=== PATIENT | female | born 1950 | race Caucasian/White ===

== ENCOUNTER 2016-09-23 13:03 | Inpatient (IN) | payer BC, OTHER ==
[~2016-09-23] VITALS: Ht 154.9 cm; Wt 97.2 kg
[~2016-09-23 13:03] MED LIST: ASPIRIN 32325 MG/TAB PO; CELEXA 20MG20 MG/TAB PO; CELEXA10 MG PO; COUMADIN 5MG5 MG/TAB PO; COZAAR100 MG PO; DITROPAN 5MG TAB5 MG PO; FIBER; HYTRIN 2MG CAPSU2 MG PO; LASIX 40MG TABL40 MG PO; LOPRESSOR 225 MG/TAB PO; PROAIR HFA0.09 MG/AC IH
[2016-09-23 14:40] VITALS: BP 132/77; PULSE 115; TEMP 97.5
[2016-09-23 17:57] VITALS: BP 120/56; PULSE 85; TEMP 98.7
[2016-09-24 05:23] VITALS: BP 131/75; PULSE 88; TEMP 98.5
[2016-09-24 16:06] VITALS: BP 118/66; PULSE 78; TEMP 97.5
[2016-09-25 06:03] VITALS: BP 123/83; PULSE 93; TEMP 98.2
[2016-09-25 06:40] LABS: HEMOGLOBIN 12.5 g/dl (12.5-16.0); MEAN CELL VOLUME 86 fl (80.0-100.0); MEAN CORPUSCULAR HEMOGLOBIN 27 pg (27.0-31.0); MEAN CORPUSCULAR HGB CONC 32 g/dl (33.0-37.0); MEAN PLATELET VOLUME 10.7 fl (7.4-10.4); PLATELET COUNT 314 K/mm3 (130-400); RED BLOOD COUNT 4.56 M/mm3 (4.10-5.30); REDCELL DISTRIBUTION WIDTH-CV 14.6 % (11.5-14.5); WHITE BLOOD COUNT 11.1 K/mm3 (4.8-10.8)
[2016-09-25 06:44] LABS: ADD PATHOLOGY DIFF REVIEW NO
[2016-09-25 06:55] LABS: CALCIUM 9.2 mg/dL (8.4-10.2); CREATININE, serum 0.91 mg/dL (0.52-1.25); POTASSIUM 4.8 mmol/L (3.4-5.0)
[2016-09-25 07:19] LABS: BAND 3 % (0-10); EOSINOPHIL 4 % (0-4); NEUTROPHILS 63 % (42.0-75.2); TOTAL CELLS COUNTED 100
[2016-09-25 07:20] LABS: PLATELET ESTIMATE NORMAL (NORMAL)
[2016-09-25 09:15] VITALS: BP 117/74; PULSE 102; TEMP 97.4
[2016-09-25 16:16] VITALS: BP 102/58; PULSE 71; TEMP 98.2
[2016-09-26 03:58] VITALS: BP 102/78; PULSE 95; TEMP 97.5
[2016-09-26 17:30] VITALS: BP 107/52; PULSE 89; TEMP 97.4
[2016-09-27 04:18] VITALS: BP 108/69; PULSE 99; TEMP 97.8
[2016-09-28 04:24] VITALS: BP 98/62; PULSE 100; TEMP 97.9
[2016-09-28 13:10] VITALS: BP 95/50; PULSE 63; TEMP 97.5
[2016-09-28 16:49] VITALS: BP 107/75; PULSE 100; TEMP 97.1
[2016-09-29] VITALS (349 sets, daily range): BP systolic 109; BP diastolic 59; PULSE 99; TEMP 97.6; O2SAT 95–100
[2016-09-29 06:41] LABS: HEMATOCRIT 41.5 % (37.0-47.0); HEMOGLOBIN 13.8 g/dl (12.5-16.0); MEAN CELL VOLUME 84 fl (80.0-100.0); MEAN CORPUSCULAR HEMOGLOBIN 28 pg (27.0-31.0); MEAN CORPUSCULAR HGB CONC 33 g/dl (33.0-37.0); MEAN PLATELET VOLUME 10.6 fl (7.4-10.4); PLATELET COUNT 418 K/mm3 (130-400); RED BLOOD COUNT 4.97 M/mm3 (4.10-5.30); REDCELL DISTRIBUTION WIDTH-CV 14.6 % (11.5-14.5); WHITE BLOOD COUNT 13.8 K/mm3 (4.8-10.8)
[2016-09-29 06:57] LABS: CREATININE, serum 3.61 mg/dL (0.52-1.25)
[2016-09-29 07:03] LABS: ADD PATHOLOGY DIFF REVIEW NO
[2016-09-29 07:34] LABS: BAND 3 % (0-10); BASOPHIL 2 % (0-2); EOSINOPHIL 7 % (0-4); METAMYELOCYTE 1 % (0-0); NEUTROPHILS 71 % (42.0-75.2); PLATELET ESTIMATE NORMAL (NORMAL); TOTAL CELLS COUNTED 100
[2016-09-29 07:48] LABS: POTASSIUM 6.8 mmol/L (3.4-5.0)
== END 2016-09-29 09:15 | DRG 948 ==
LOC: ICU 09-29 09:06
PROVIDERS: Internal Medicine
DX: R53.81 Other malaise (principal); E46 Unspecified protein-calorie malnutrition; K91.3 Postprocedural intestinal obstruction; Z68.41 Body mass index [BMI] 40.0-44.9, adult; I31.3 Pericardial effusion (noninflammatory); N17.9 Acute kidney failure, unspecified; Z93.2 Ileostomy status; I48.2 Chronic atrial fibrillation; J44.9 Chronic obstructive pulmonary disease, unspecified; I10 Essential (primary) hypertension; E66.01 Morbid (severe) obesity due to excess calories; Z87.891 Personal history of nicotine dependence; E87.6 Hypokalemia
CPT/HCPCS: 99223-AI; 99232-AI; J1644; J2405; J7040

== ENCOUNTER 2016-09-29 09:06 | Inpatient (IN) | payer OTHER ==
[~2016-09-29] VITALS: Ht 170.2 cm; Wt 97.1 kg
[2016-09-29] VITALS (398 sets, daily range): BP systolic 102–118; BP diastolic 57–71; PULSE 75–104; TEMP 97.8–98.4; O2SAT 93–100
[2016-09-29 09:55] LABS: HEMATOCRIT 39.2 % (37.0-47.0); HEMOGLOBIN 12.9 g/dl (12.5-16.0); MEAN CELL VOLUME 84 fl (80.0-100.0); MEAN CORPUSCULAR HEMOGLOBIN 28 pg (27.0-31.0); MEAN CORPUSCULAR HGB CONC 33 g/dl (33.0-37.0); MEAN PLATELET VOLUME 10.5 fl (7.4-10.4); PLATELET COUNT 361 K/mm3 (130-400); RED BLOOD COUNT 4.66 M/mm3 (4.10-5.30); REDCELL DISTRIBUTION WIDTH-CV 14.6 % (11.5-14.5); WHITE BLOOD COUNT 9.8 K/mm3 (4.8-10.8)
[2016-09-29 09:57] LABS: ADD PATHOLOGY DIFF REVIEW NO
[2016-09-29 09:59] LABS: CALCIUM 9.2 mg/dL (8.4-10.2); CREATININE, serum 3.39 mg/dL (0.52-1.25)
[2016-09-29 10:11] LABS: POTASSIUM 6.3 mmol/L (3.4-5.0)
[2016-09-29 10:15] LABS: BAND 5 % (0-10); EOSINOPHIL 4 % (0-4); METAMYELOCYTE 1 % (0-0); NEUTROPHILS 78 % (42.0-75.2); PLATELET ESTIMATE NORMAL (NORMAL); TOTAL CELLS COUNTED 100
[2016-09-29 11:23] LABS: HYALINE CAST >12 /lpf; PH 5 (5-8); SQUAMOUS EPITHELIAL 0-2 /hpf; URINE APPEARANCE Hazy; URINE BACTERIA None Seen /hpf; URINE BILIRUBIN Negative (NEGATIVE); URINE BLOOD Negative (NEGATIVE); URINE COLOR Yellow; URINE GLUCOSE 1+ (NEGATIVE); URINE KETONE Negative (NEGATIVE); URINE RBC 0-2 /hpf; URINE UROBILINOGEN Negative (NEGATIVE)
[2016-09-29 13:17] LABS: ADJUSTED CALCIUM 9.4 mg/dL (8.4-10.2); ALBUMIN 3.7 gm/dL (3.5-5.0); BILIRUBIN,TOTAL 0.8 mg/dL (0.0-1.0); CALCIUM 9.2 mg/dL (8.4-10.2); CREATININE, serum 2.67 mg/dL (0.52-1.25); TOTAL PROTEIN 7.4 gm/dL (6.4-8.2)
[2016-09-29 13:22] LABS: POTASSIUM 5.9 mmol/L (3.4-5.0)
[2016-09-30] VITALS (693 sets, daily range): BP systolic 110–132; BP diastolic 60–85; PULSE 76–102; TEMP 96.7–98.4; O2SAT 93–100
[2016-09-30 05:40] LABS: BASO # 0.1 (0.0-0.2); BASO % 1.4 % (0.0-2.0); EOS # 0.5 (0.0-0.7); EOS % 6.5 % (0-4.0); GRAN # 4.6 (1.4-6.5); GRAN % 65.2 % (42.2-75.2); LYMPH # 1.1 (1.2-3.4); LYMPH % 15.8 % (20.0-51.0); MEAN CELL VOLUME 86 fl (80.0-100.0); MEAN CORPUSCULAR HGB CONC 32 g/dl (33.0-37.0); MEAN PLATELET VOLUME 10.6 fl (7.4-10.4); MONO # 0.6 (0.1-0.6); RED BLOOD COUNT 3.42 M/mm3 (4.10-5.30); REDCELL DISTRIBUTION WIDTH-CV 14.9 % (11.5-14.5); WHITE BLOOD COUNT 7.1 K/mm3 (4.8-10.8)
[2016-09-30 05:46] LABS: HEMATOCRIT 29.3 % (37.0-47.0); HEMOGLOBIN 9.5 g/dl (12.5-16.0); MEAN CORPUSCULAR HEMOGLOBIN 28 pg (27.0-31.0); PLATELET COUNT 245 K/mm3 (130-400)
[2016-09-30 05:56] LABS: CALCIUM 6.6 mg/dL (8.4-10.2); CREATININE, serum 1.07 mg/dL (0.52-1.25); POTASSIUM 4.4 mmol/L (3.4-5.0)
[2016-10-01] VITALS: BP 119/64; PULSE 94; TEMP 98.2
[2016-10-01 05:09] VITALS: BP 128/67; PULSE 83; TEMP 98.2
[2016-10-01 09:18] LABS: MEAN CELL VOLUME 85 fl (80.0-100.0); MEAN CORPUSCULAR HGB CONC 32 g/dl (33.0-37.0); PLATELET COUNT 316 K/mm3 (130-400); RED BLOOD COUNT 4.12 M/mm3 (4.10-5.30); REDCELL DISTRIBUTION WIDTH-CV 14.9 % (11.5-14.5); WHITE BLOOD COUNT 9.1 K/mm3 (4.8-10.8)
[2016-10-01 09:19] LABS: HEMATOCRIT 35.2 % (37.0-47.0); HEMOGLOBIN 11.4 g/dl (12.5-16.0); MEAN CORPUSCULAR HEMOGLOBIN 28 pg (27.0-31.0)
[2016-10-01 09:20] LABS: ADD PATHOLOGY DIFF REVIEW NO
[2016-10-01 09:28] LABS: BAND 2 % (0-10); BASOPHIL 4 % (0-2); CALCIUM 8.7 mg/dL (8.4-10.2); CREATININE, serum 0.8 mg/dL (0.52-1.25); EOSINOPHIL 5 % (0-4); NEUTROPHILS 65 % (42.0-75.2); PLATELET ESTIMATE NORMAL (NORMAL); POTASSIUM 5.3 mmol/L (3.4-5.0); TOTAL CELLS COUNTED 100
[2016-10-01 09:48] VITALS: BP 107/61; PULSE 75; TEMP 97.7
[2016-10-01 14:09] VITALS: BP 98/59; PULSE 77; TEMP 97.6
[2016-10-01 14:49] VITALS: BP 98/59; PULSE 77; TEMP 97.6
== END 2016-10-01 15:10 | DRG 683 ==
LOC: ICU 09:06 → SURG 09-30 11:15
PROVIDERS: Internal Medicine
DX: N17.9 Acute kidney failure, unspecified (principal); E87.2 Acidosis; Z68.41 Body mass index [BMI] 40.0-44.9, adult; I31.3 Pericardial effusion (noninflammatory); E87.5 Hyperkalemia; Z93.2 Ileostomy status; I48.0 Paroxysmal atrial fibrillation; Z79.01 Long term (current) use of anticoagulants; I10 Essential (primary) hypertension; J44.9 Chronic obstructive pulmonary disease, unspecified; E66.01 Morbid (severe) obesity due to excess calories
CPT/HCPCS: 99223-AI; 99233-AI; 99239; A4315; J1644; J1815; J7030

== ENCOUNTER 2016-10-01 13:52 | Inpatient (IN) | payer OTHER ==
[~2016-10-01] VITALS: Ht 170.2 cm; Wt 97.6 kg
[2016-10-01 17:34] VITALS: BP 125/82; PULSE 72; TEMP 97.5
[2016-10-02 06:02] VITALS: BP 137/80; PULSE 117; TEMP 96.6
[2016-10-02 17:09] VITALS: BP 150/85; PULSE 102; TEMP 97.4
[2016-10-03 03:49] VITALS: BP 133/93; PULSE 110; TEMP 98
[2016-10-03 08:24] LABS: MEAN CELL VOLUME 84 fl (80.0-100.0); MEAN CORPUSCULAR HEMOGLOBIN 28 pg (27.0-31.0); MEAN CORPUSCULAR HGB CONC 33 g/dl (33.0-37.0); MEAN PLATELET VOLUME 10.1 fl (7.4-10.4); PLATELET COUNT 306 K/mm3 (130-400); RED BLOOD COUNT 4.34 M/mm3 (4.10-5.30); REDCELL DISTRIBUTION WIDTH-CV 14.6 % (11.5-14.5); WHITE BLOOD COUNT 7.1 K/mm3 (4.8-10.8)
[2016-10-03 08:26] LABS: HEMATOCRIT 36.6 % (37.0-47.0)
[2016-10-03 08:28] LABS: ADD PATHOLOGY DIFF REVIEW NO
[2016-10-03 09:05] LABS: EOSINOPHIL 4 % (0-4); NEUTROPHILS 70 % (42.0-75.2); PLATELET ESTIMATE NORMAL (NORMAL); TOTAL CELLS COUNTED 100
[2016-10-03 09:59] LABS: CALCIUM 9.2 mg/dL (8.4-10.2); CREATININE, serum 0.79 mg/dL (0.52-1.25); MAGNESIUM 1.4 mg/dL (1.6-2.3); POTASSIUM 5.3 mmol/L (3.4-5.0)
[2016-10-03 18:18] VITALS: BP 136/68; PULSE 93; TEMP 96.7
[2016-10-04 04:10] VITALS: BP 122/88; PULSE 107; TEMP 98.3
[2016-10-04 16:27] VITALS: BP 137/60; PULSE 108; TEMP 98
[2016-10-05 06:37] VITALS: BP 112/68; PULSE 92; TEMP 97.7
[2016-10-05 19:04] VITALS: BP 103/59; PULSE 86; TEMP 97.4
[2016-10-06 04:49] VITALS: BP 114/61; PULSE 82; TEMP 98
[2016-10-06 07:27] LABS: CALCIUM 8.9 mg/dL (8.4-10.2); CREATININE, serum 0.81 mg/dL (0.52-1.25); MAGNESIUM 1.5 mg/dL (1.6-2.3); POTASSIUM 4.8 mmol/L (3.4-5.0)
[2016-10-06 16:12] VITALS: BP 139/60; PULSE 65; TEMP 98
[2016-10-07 04:43] VITALS: BP 115/74; PULSE 74; TEMP 97.7
[2016-10-07 17:34] VITALS: BP 115/70; PULSE 56; TEMP 98.2
[2016-10-08 04:22] VITALS: BP 102/68; PULSE 74; TEMP 97.5
[2016-10-08 10:16] LABS: CALCIUM 9.3 mg/dL (8.4-10.2); CREATININE, serum 0.89 mg/dL (0.52-1.25); MAGNESIUM 1.6 mg/dL (1.6-2.3); POTASSIUM 4.9 mmol/L (3.4-5.0)
[2016-10-08 16:32] VITALS: BP 109/51; PULSE 53; TEMP 98.4
[2016-10-09 02:06] VITALS: BP 140/72; PULSE 107; TEMP 97.5
[2016-10-09 18:06] VITALS: BP 108/61; PULSE 77; TEMP 97.2
[2016-10-10 06:35] VITALS: BP 139/64; PULSE 92; TEMP 97.7
[2016-10-10 17:47] VITALS: BP 119/54; PULSE 57; TEMP 97.4
[2016-10-11 02:00] VITALS: BP 126/78; PULSE 85; TEMP 98.3
[2016-10-11 09:28] LABS: BASO # 0.1 (0.0-0.2); BASO % 0.5 % (0.0-2.0); EOS # 0.1 (0.0-0.7); EOS % 0.5 % (0-4.0); GRAN # 11.6 (1.4-6.5); HEMATOCRIT 40.3 % (37.0-47.0); HEMOGLOBIN 13.6 g/dl (12.5-16.0); LYMPH % 7.2 % (20.0-51.0); MEAN CELL VOLUME 82 fl (80.0-100.0); MEAN CORPUSCULAR HEMOGLOBIN 28 pg (27.0-31.0); MEAN CORPUSCULAR HGB CONC 34 g/dl (33.0-37.0); MEAN PLATELET VOLUME 9.7 fl (7.4-10.4); MONO # 0.7 (0.1-0.6); PLATELET COUNT 272 K/mm3 (130-400); RED BLOOD COUNT 4.91 M/mm3 (4.10-5.30); WHITE BLOOD COUNT 13.5 K/mm3 (4.8-10.8)
[2016-10-11 09:38] LABS: CALCIUM 9.9 mg/dL (8.4-10.2); CREATININE, serum 1.38 mg/dL (0.52-1.25); MAGNESIUM 1.8 mg/dL (1.6-2.3); POTASSIUM 5.4 mmol/L (3.4-5.0)
[2016-10-11 15:47] VITALS: BP 142/90; PULSE 118; TEMP 98
[2016-10-12 03:57] VITALS: BP 118/69; PULSE 79; TEMP 98.7
[2016-10-12 08:46] LABS: ADD PATHOLOGY DIFF REVIEW NO
[2016-10-12 09:02] LABS: HEMOGLOBIN 12.7 g/dl (12.5-16.0); MEAN CELL VOLUME 83 fl (80.0-100.0); MEAN CORPUSCULAR HEMOGLOBIN 28 pg (27.0-31.0); MEAN CORPUSCULAR HGB CONC 33 g/dl (33.0-37.0); MEAN PLATELET VOLUME 10.2 fl (7.4-10.4); PLATELET COUNT 263 K/mm3 (130-400); RED BLOOD COUNT 4.57 M/mm3 (4.10-5.30); REDCELL DISTRIBUTION WIDTH-CV 14.5 % (11.5-14.5); WHITE BLOOD COUNT 19.2 K/mm3 (4.8-10.8)
[2016-10-12 09:03] LABS: ADJUSTED CALCIUM 8.8 mg/dL (8.4-10.2); ALBUMIN 3.8 gm/dL (3.5-5.0); CALCIUM 8.6 mg/dL (8.4-10.2); CREATININE, serum 1.33 mg/dL (0.52-1.25); MAGNESIUM 1.9 mg/dL (1.6-2.3); POTASSIUM 5.1 mmol/L (3.4-5.0); TOTAL PROTEIN 7.3 gm/dL (6.4-8.2)
[2016-10-12 09:34] LABS: BAND 6 % (0-10); METAMYELOCYTE 1 % (0-0); MYELOCYTE 1 % (0-0); NEUTROPHILS 80 % (42.0-75.2); PLATELET ESTIMATE NORMAL (NORMAL); TOTAL CELLS COUNTED 100
[2016-10-12 14:59] LABS: PH 5 (5-8); SQUAMOUS EPITHELIAL 0-2 /hpf; URINE APPEARANCE Hazy; URINE BACTERIA None Seen /hpf; URINE BILIRUBIN Negative (NEGATIVE); URINE BLOOD Negative (NEGATIVE); URINE COLOR Yellow; URINE GLUCOSE Negative (NEGATIVE); URINE KETONE Negative (NEGATIVE); URINE UROBILINOGEN Negative (NEGATIVE); URINE WBC 0-2 /hpf
[2016-10-12 17:45] VITALS: BP 104/54; PULSE 67; TEMP 99.3
[2016-10-13 06:18] VITALS: BP 127/78; PULSE 84; TEMP 97.9
[2016-10-13 07:14] LABS: ADD PATHOLOGY DIFF REVIEW NO
[2016-10-13 07:28] LABS: MEAN CELL VOLUME 85 fl (80.0-100.0); MEAN CORPUSCULAR HGB CONC 32 g/dl (33.0-37.0); MEAN PLATELET VOLUME 10.2 fl (7.4-10.4); PLATELET COUNT 196 K/mm3 (130-400); RED BLOOD COUNT 3.85 M/mm3 (4.10-5.30); REDCELL DISTRIBUTION WIDTH-CV 14.7 % (11.5-14.5); WHITE BLOOD COUNT 11.7 K/mm3 (4.8-10.8)
[2016-10-13 07:34] LABS: HEMATOCRIT 32.7 % (37.0-47.0); HEMOGLOBIN 10.6 g/dl (12.5-16.0); MEAN CORPUSCULAR HEMOGLOBIN 28 pg (27.0-31.0)
[2016-10-13 07:39] LABS: ADJUSTED CALCIUM 8.9 mg/dL (8.4-10.2); ALBUMIN 2.9 gm/dL (3.5-5.0); BILIRUBIN,TOTAL 0.8 mg/dL (0.0-1.0); CREATININE, serum 1.03 mg/dL (0.52-1.25); POTASSIUM 4.4 mmol/L (3.4-5.0); TOTAL PROTEIN 6.1 gm/dL (6.4-8.2)
[2016-10-13 08:01] LABS: BASOPHIL 1 % (0-2); NEUTROPHILS 85 % (42.0-75.2); TOTAL CELLS COUNTED 100
[2016-10-13 08:02] LABS: ROULEAUX 1+
[2016-10-13 08:03] LABS: SPHEROCYTE 1+
[2016-10-13 16:59] VITALS: BP 109/56; PULSE 60; TEMP 97.7
[2016-10-14 05:47] VITALS: BP 125/62; PULSE 97; TEMP 97.9
[2016-10-14 17:11] VITALS: BP 94/56; PULSE 49; TEMP 97.6
[2016-10-14 17:18] VITALS: BP 108/51
[2016-10-15 06:06] VITALS: BP 120/76; PULSE 79; TEMP 97.7
[2016-10-15 06:34] LABS: CALCIUM 8.3 mg/dL (8.4-10.2); CREATININE, serum 0.71 mg/dL (0.52-1.25); MAGNESIUM 1.8 mg/dL (1.6-2.3); POTASSIUM 4.2 mmol/L (3.4-5.0)
[2016-10-15] MEDS ORDERED: ELIQUIS 5MG PO (10:10)
[2016-10-15] MEDS ORDERED: CORDARONE200 MG/TAB PO (10:11)
[2016-10-15] MEDS ORDERED: ASPIRIN E.C. 8181 MG PO (10:11)
[2016-10-15] MEDS ORDERED: TYLENOL 325MG325 MG PO (10:11)
[2016-10-15] MEDS ORDERED: MAG-OX 400400 MG/TAB PO (10:12)
[2016-10-15] MEDS ORDERED: METAMUCIL3.4 GM/DOS PO (10:12)
== END 2016-10-15 13:14 | disposition home health service (06) | DRG 683 ==
PROVIDERS: Internal Medicine; Nurse Practitioner Family
DX: N17.9 Acute kidney failure, unspecified (principal); E87.2 Acidosis; I31.3 Pericardial effusion (noninflammatory); E87.5 Hyperkalemia; I10 Essential (primary) hypertension; I48.2 Chronic atrial fibrillation; Z93.2 Ileostomy status; J44.9 Chronic obstructive pulmonary disease, unspecified; Z79.01 Long term (current) use of anticoagulants; E83.42 Hypomagnesemia
CPT/HCPCS: 99222-AI; 99232-AI; 99233-AI; 99239; J1644; J1956; J2550; J7030

== ENCOUNTER 2016-10-29 11:00 | Inpatient (IN) | payer MEDICARE, OTHER ==
[~2016-10-29] VITALS: Ht 170.2 cm; Wt 95.5 kg
[~2016-10-29 11:00] MED LIST changes: +ASPIRIN E.C. 8181 MG PO; +CORDARONE200 MG/TAB PO; +ELIQUIS 5MG PO; +MAG-OX 400400 MG/TAB PO; +METAMUCIL3.4 GM/DOS PO; +TYLENOL 325MG325 MG PO
[2016-12-10] VITALS (9 sets, daily range): BP systolic 109–132; BP diastolic 60–79; PULSE 71–99; TEMP 97.5–98.4
[2016-12-10 07:44] LABS: BASO # 0.1 (0.0-0.2); BASO % 0.8 % (0.0-2.0); EOS # 0.5 (0.0-0.7); EOS % 5.4 % (0-4.0); GRAN # 5.9 (1.4-6.5); GRAN % 70.5 % (42.2-75.2); HEMATOCRIT 38.1 % (37.0-47.0); HEMOGLOBIN 12.4 g/dl (12.5-16.0); LYMPH # 1.3 (1.2-3.4); LYMPH % 15.4 % (20.0-51.0); MEAN CELL VOLUME 84 fl (80.0-100.0); MEAN CORPUSCULAR HEMOGLOBIN 27 pg (27.0-31.0); MEAN CORPUSCULAR HGB CONC 33 g/dl (33.0-37.0); MEAN PLATELET VOLUME 9.6 fl (7.4-10.4); MONO # 0.6 (0.1-0.6); MONO % 7.2 % (1.7-9.3); PLATELET COUNT 216 K/mm3 (130-400); RED BLOOD COUNT 4.55 M/mm3 (4.10-5.30); REDCELL DISTRIBUTION WIDTH-CV 15.6 % (11.5-14.5); WHITE BLOOD COUNT 8.3 K/mm3 (4.8-10.8)
[2016-12-10 07:56] LABS: INR 1.2 (0.8-3.0); PROTHROMBIN TIME 13.5 SECONDS (9.7-12.8)
[2016-12-10] MEDS ORDERED: MELAT3MGTAB (08:04)
[2016-12-10] MEDS ORDERED: MAGNESIUM500 MG PO (08:05)
[2016-12-10] MEDS ORDERED: LOVENOX 100100 MG/ML SQ (08:06)
[2016-12-10] MEDS ORDERED: COUMADIN 5MG5 MG/TAB PO (08:07)
[2016-12-10] MEDS ORDERED: COUMADIN 22.5 MG/TAB PO (08:08)
[2016-12-10 08:22] LABS: CALCIUM 9.3 mg/dL (8.4-10.2); CREATININE, serum 1.04 mg/dL (0.52-1.25); POTASSIUM 4.8 mmol/L (3.4-5.0)
[2016-12-11 02:00] VITALS: BP 129/69; PULSE 88; TEMP 98.1
[2016-12-11 04:59] VITALS: BP 116/74; PULSE 85; TEMP 98.3
[2016-12-11 09:39] VITALS: BP 116/58; PULSE 106; TEMP 97.5
[2016-12-11 10:47] LABS: HEMATOCRIT 35.6 % (37.0-47.0); HEMOGLOBIN 11.5 g/dl (12.5-16.0)
[2016-12-11 10:49] LABS: CALCIUM 8.7 mg/dL (8.4-10.2); CREATININE, serum 0.98 mg/dL (0.52-1.25); POTASSIUM 4.2 mmol/L (3.4-5.0)
[2016-12-11 13:17] VITALS: BP 120/65; PULSE 79; TEMP 97.9
[2016-12-11 17:17] VITALS: BP 113/64; PULSE 90; TEMP 97.9
[2016-12-11 21:25] VITALS: BP 130/68; PULSE 84; TEMP 98.3
[2016-12-12 01:13] VITALS: BP 132/57; PULSE 75; TEMP 97.8
[2016-12-12 04:39] VITALS: BP 137/83; PULSE 94; TEMP 97.2
[2016-12-12 07:33] LABS: INR 1.2 (0.8-3.0); PROTHROMBIN TIME 13.5 SECONDS (9.7-12.8)
[2016-12-12 07:51] LABS: HEMATOCRIT 34.9 % (37.0-47.0); HEMOGLOBIN 11.3 g/dl (12.5-16.0)
[2016-12-12 07:56] LABS: CALCIUM 8.8 mg/dL (8.4-10.2); CREATININE, serum 1.04 mg/dL (0.52-1.25); POTASSIUM 4.2 mmol/L (3.4-5.0)
[2016-12-12 09:54] VITALS: BP 99/62; PULSE 64; TEMP 97.9
[2016-12-12 13:49] VITALS: BP 97/62; PULSE 85
[2016-12-12 17:53] VITALS: BP 96/59; PULSE 91; TEMP 97.6
[2016-12-12 21:04] VITALS: BP 120/44; PULSE 102; TEMP 98
[2016-12-13 01:42] VITALS: BP 140/71; PULSE 83; TEMP 97.5
[2016-12-13 05:05] VITALS: BP 134/90; PULSE 97; TEMP 98.2
[2016-12-13 07:20] LABS: INR 1.3 (0.8-3.0); PROTHROMBIN TIME 14.9 SECONDS (9.7-12.8)
[2016-12-13 09:20] VITALS: BP 119/82; PULSE 88; TEMP 98.2
[2016-12-13 12:53] VITALS: BP 119/82; PULSE 88; TEMP 98.2
== END 2016-12-13 13:00 | DRG 331 ==
LOC: INPTSU 12-10 06:19 → SURG 12-10 06:19
PROVIDERS: Nurse Anesthetist, Certified Registered; Surgery
PROC: 0DBB0ZZ Excision of Ileum, Open Approach (ICD-10-PCS; principal; 2016-12-10 08:45)
DX: Z43.2 Encounter for attention to ileostomy (principal); I48.91 Unspecified atrial fibrillation; J44.9 Chronic obstructive pulmonary disease, unspecified; I10 Essential (primary) hypertension
CPT/HCPCS: A4315; A9284; J0694; J1100; J1650; J2250; J2405; J2704; J2710; J2795; J3010; J7120